=== PATIENT | female | born 1955 | race Hispanic/Latino ===

== ENCOUNTER 2018-06-20 12:21 | Inpatient (IN) | payer OTHER, MEDICARE ==
[2018-06-20 16:44] VITALS: BMI 28.0
[2018-06-20] MEDS ORDERED: ALBUTEROL SULFATE IH PRN (17:04)
[2018-06-20] MEDS ORDERED: DiphenhydrAMINE 50 mg/ml Inj IVP PRN (17:16)
[2018-06-20] MEDS ORDERED: Diphenhydramine 1% CREAM TOP PRN (17:17)
[2018-06-20] MEDS ORDERED: oxyCODONE 10 mg ER Tab (oxyCONTIN) PO SCH (21:00)
[2018-06-21] MEDS ORDERED: Bisacodyl 5mg EC Tab PO ONE (03:27)
[2018-06-21 04:34] LABS: SQUAMOUS EPITHIAL 1 /hpf (0-5); URINE BACTERIA RARE (<OCC); URINE BILIRUBIN NEGATIVE (NEGATIVE); URINE BLOOD MODERATE (NEGATIVE); URINE CLARITY CLOUDY (Clear); URINE COLOR YELLOW (YELLOW); URINE GLUCOSE (UA) NEG (NEGATIVE); URINE LEUKOCYTE ESTERASE NEG Leu/uL (Negative); URINE PROTEIN NEGATIVE (NEGATIVE); URINE UROBILINOGEN 0.2-1.0 mg/dL (0.2-1.0)
--- NOTE | 2018-06-21 07:00 | CP.PCM.PN ---
Subjective - Date & Time of Evaluation Date of Evaluation: 06/21/18 Time of Evaluation: 06:45 - Subjective Subjective: Patient was asleep at the time of examination. She was able to participate in PT, without IV Dilaudid per staff. She was given mostly Toradol during the day and one dose of Oxycontin af night. She did ask for other medications which she had been on before. Once again, she stated that she has an appt with her pain physician at 07/06. Objective - Vital Signs/Intake and Output Vital Signs (last 24 hours): Temp Pulse Resp BP Pulse Ox 99.3 F 103 H 20 101/68 94 L 06/20/18 21:21 06/20/18 21:21 06/20/18 21:21 06/20/18 21:21 06/20/18 21:21 - Medications Medications: Current Medications Acetaminophen (Tylenol 325mg Tab) 650 mg PO Q4 PRN PRN Reason: Pain, Mild (1-3) Albuterol (Ventolin Hfa 90 Mcg/Actuation (8 G)) 2 puff IH Q6 PRN PRN Reason: Shortness of Breath Bacitracin (Bacitracin Oint) 1 applic TOP TID [facility] Calcium Carbonate (Oscal) 500 mg PO DAILY [facility] Cyanocobalamin (Vitamin B12 1000 Mcg Tab) 1,000 mcg PO DAILY [facility] Docusate Sodium (Colace) 100 mg PO DAILY [facility] Folic Acid (Folic Acid) 1 mg PO DAILY [facility] Home Med (Folic Acid [Folic Acid]) 0.4 mg PO DAILY [facility] Ketorolac Tromethamine (Toradol) 30 mg IVP Q6 PRN PRN Reason: Pain, severe (8-10) Last Admin: 06/21/18 04:00 Dose: 30 mg Lactulose (Enulose) 20 gm PO Q12 PRN PRN Reason: Constipation Lorazepam (Ativan) 1 mg PO HS [facility] Last Admin: 06/20/18 23:07 Dose: 1 mg Losartan Potassium (Cozaar) 100 mg PO DAILY [facility] Metoprolol Tartrate (Lopressor) 50 mg PO BID [facility] Ondansetron HCl (Zofran Inj) 4 mg IVP Q6 PRN PRN Reason: Nausea/Vomiting Oxycodone HCl (Oxycontin Extended Release Tab) 30 mg PO Q12 [facility] Stop: 06/23/18 21:01 Last Admin: 06/20/18 20:51 Dose: 30 mg Pregabalin (Lyrica) 50 mg PO TID [facility] Pyridoxine HCl (Vitamin B6) 25 mg PO DAILY [facility] Vitamin D (Vitamin D 400 Intl Units Tab) 800 intlu PO DAILY [facility] Zinc Acetate/Diphenhydramine (Benadryl 1% Zinc Acetate -0.1%) 1 applic TOP Q12 PRN PRN Reason: Itching / Pruritus Zolpidem Tartrate (Ambien) 5 mg PO HS [facility] Last Admin: 06/20/18 23:16 Dose: Not Given - Constitutional Appears: No Acute Distress Assessment and Plan (1) S/P hardware removal Assessment & Plan: 62 yo woman w/ chronic pain, on Suboxone, is s/p L1-S1 fusion. Patient was transferred from 6S to TCU. - d/c Oxycontin, start Oxycodone 30mg q6h PRN - continue Lyrica and Toradol, can titrate Lyrica to 100mg q8h, Toradol needs to be transitioned to PO NSAIDs by Friday - once again, patient needs to be restarted on Suboxone CYNTHIA by her primary pain physician, she has to find a way to have an earlier appt than 07/06, PMD may need to write for Oxycodone 30mg for a few days until she can see her physician Status: Acute
[2018-06-21] MEDS: oxyCODONE 10 mg Immediate Release Tab PO PRN ×2 (08:53→16:28)
[2018-06-21] MEDS: Cholecalciferol 400 Intl Units Tab PO SCH (08:55)
[2018-06-21] MEDS: Bacitracin OINT 15GM TOP SCH ×3 (08:58→16:29)
--- NOTE | 2018-06-21 10:58 | CP.PCM.HP ---
<Pauly Nova - Last Filed: 06/21/18 18:30> History of Present Illness - History of Present Illness History of Present Illness: 62 y/o F with medical hx of HTN, HLD, osteoarthritis, COPD is admitted to TCU for physical therapy post following removal of posterior hardware L4-L5, dorsal fusion L1-S1 w/ anterior fusion L5-S1. Patient is receiving pain management& has been complaining of pain in b/l calves, but denies nausea, vomiting, chest pain, SOB, abdominal pain. PCP: Dr Brown Spinal surgeon: Mathieu Hidalgo Allergies: Clindamycin, latex, tramadol. Medications, as per chart: Losartan 100mg PO daily, Lorazepam 2mg PO HS, Calcium Carbonate 600mg PO daily, Albuterol HFA PRN, oxycodone IR 5mg BID, Ambien 10mg PO HS, Pyridoxine 25mg PO daily, Folic acid 0.4mg PO daily, Vit B12 1,000mcg PO daily, vitamin D3 800units PO daily, Suboxone 2mg/0.5mg PMHx: HTN, HLD, osteoarthritis, COPD. PSHx: 3x , Cervical disectomy and L trigger finger release SHx: Quit smoking 4 years ago & denies eToH or ellicit drug use Present on Admission - Present on Admission Any Indicators Present on Admission: No History of DVT/PE: No History of Uncontrolled Diabetes: No Urinary Catheter: No Decubitus Ulcer Present: No Past Patient History - Past Medical History & Family History Past Medical History?: Yes - Past Social History Smoking Status: Former Smoker - CARDIAC Hx Cardiac Disorders: Yes Hx Hypertension: Yes - PULMONARY Hx Respiratory Disorders: No - NEUROLOGICAL Hx Neurological Disorder: No - HEENT Hx HEENT Problems: No - RENAL Hx Chronic Kidney Disease: No - ENDOCRINE/METABOLIC Hx Endocrine Disorders: No - HEMATOLOGICAL/ONCOLOGICAL Hx Blood Disorders: No Hx AIDS: No Hx Blood Transfusions: No Hx Human Immunodeficiency Virus (HIV): No - INTEGUMENTARY Hx Dermatological Problems: No - MUSCULOSKELETAL/RHEUMATOLOGICAL Hx Musculoskeletal Disorders: Yes Hx Arthritis: Yes Hx Back Pain: Yes (back surgery on L4/L5 in 2007) Hx Falls: Yes - GASTROINTESTINAL Hx Gastrointestinal Disorders: No - GENITOURINARY/GYNECOLOGICAL Hx Genitourinary Disorders: No - PSYCHIATRIC Hx Emotional Abuse: No Hx Physical Abuse: No - SURGICAL HISTORY Hx Surgeries: Yes (back surgery on L4/L5 in 2007) Other/Comment: cervical discectomy. left trigger finger release - ANESTHESIA Hx Anesthesia: Yes Hx Anesthesia Reactions: No Hx Malignant Hyperthermia: No Meds Allergies/Adverse Reactions: Allergies Allergy/AdvReac Type Severity Reaction Status Date / Time clindamycin Allergy DIARRHEA Verified 06/20/18 13:27 latex Allergy REDNESS Verified 06/15/18 15:04 tramadol Allergy NAUSEA Verified 06/18/18 06:54 Physical Exam - Constitutional Appears: Non-toxic, No Acute Distress - Head Exam Head Exam: ATRAUMATIC, NORMAL INSPECTION - Eye Exam Eye Exam: EOMI - ENT Exam ENT Exam: Mucous Membranes Moist - Respiratory Exam Respiratory Exam: Clear to Auscultation Bilateral - Cardiovascular Exam Cardiovascular Exam: RRR, +S1, +S2 - GI/Abdominal Exam GI & Abdominal Exam: absent: Guarding, Rebound, Rigid Additional comments: tenderness over incision site in LL abdomen - Neurological Exam Neurological exam: Alert, Oriented x3 Additional comments: dressing clean dry intact with no discharge over L1-L5; sensation in upper and lower extremity intact b/l Results - Vital Signs Recent Vital Signs: Last Vital Signs Temp 98.9 F 06/21/18 08:10 Pulse 95 H 06/21/18 08:58 Resp 20 06/21/18 08:10 BP 95/56 L 06/21/18 08:58 Pulse Ox 96 06/21/18 08:10 - Labs Result Diagrams: 06/21/18 17:00 06/21/18 17:00 Labs: Laboratory Results - last 24 hr 06/21/18 04:23 Urine Color Yellow Urine Clarity Cloudy Urine pH 6.0 Ur Specific [place] 1.008 Urine Protein Negative Urine Glucose (UA) Neg Urine Ketones Negative Urine Blood Moderate Urine Nitrate Negative Urine Bilirubin Negative Urine Urobilinogen 0.2-1.0 Ur Leukocyte Esterase Neg Urine RBC (Auto) 2 Urine Microscopic WBC 9 H Ur Squamous Epith Cells 1 Urine Bacteria Rare Assessment & Plan - Assessment and Plan (Free Text) Assessment: 62 y/o F with a PMHx of HTN, osteoarthritis, COPD and lumbar disc herniation is admitted for evaluation S/P removal of posterior hardware L4-L5, dorsal fusion L1-S1 w/ anteior fusion L5-S1. 1. Lumbar herniated disk --POD #3 --Afebrile with WBC trending down. --Continue pain management as per anesthesia. --Heart Healthy PO diet --Continue to monitor mental status. 2. HTN --Home meds resumed -Monitor VS. 3. COPD --Home meds resumed 4. DVT Prophylaxis --SCD's for now ( Ortho does not want anticoagulation) <Ru Clarke - Last Filed: 06/21/18 23:13> Results - Vital Signs Recent Vital Signs: Last Vital Signs Temp 99.7 F H 06/21/18 19:51 Pulse 90 06/21/18 19:51 Resp 20 06/21/18 19:51 BP 103/63 06/21/18 19:51 Pulse Ox 99 06/21/18 19:51 - Labs Result Diagrams: 06/21/18 17:00 06/21/18 17:00 Labs: Laboratory Results - last 24 hr 06/21/18 06/21/18 06/21/18 04:23 17:00 17:00 WBC 14.3 H RBC 2.39 L Hgb 7.3 L Hct 22.3 L MCV 93.1 MCH 30.7 MCHC 33.0 RDW 13.5 Plt Count 169 MPV 10.2 Neut % (Auto) 84.4 H Lymph % (Auto) 7.9 L Moca % (Auto) 7.5 Eos % (Auto) 0.1 Baso % (Auto) 0.1 Neut # (Auto) 12.1 H Lymph # (Auto) 1.1 Moca # (Auto) 1.1 H Eos # (Auto) 0.0 Baso # (Auto) 0.0 Neutrophils % (Manual) 85 H Lymphocytes % (Manual) 9 L Monocytes % (Manual) 6 Platelet Estimate Normal Anisocytosis (manual) Slight Sodium 136 Potassium 3.7 Chloride 93 L Carbon Dioxide 26 Anion Gap 21 H BUN 15 Creatinine 0.9 Est GFR ( Amer) > 60 Est GFR (Non-Af Amer) > 60 Random Glucose 130 H Calcium 8.4 Phosphorus 2.7 Magnesium 1.8 Total Bilirubin 1.0 AST 206 H ALT 76 H Alkaline Phosphatase 111 Total Protein 6.7 Albumin 3.4 L Globulin 3.3 Albumin/Globulin Ratio 1.0 Urine Color Yellow Urine Clarity Cloudy Urine pH 6.0 Ur Specific [place] 1.008 Urine Protein Negative Urine Glucose (UA) Neg Urine Ketones Negative Urine Blood Moderate Urine Nitrate Negative Urine Bilirubin Negative Urine Urobilinogen 0.2-1.0 Ur Leukocyte Esterase Neg Urine RBC (Auto) 2 Urine Microscopic WBC 9 H Ur Squamous Epith Cells 1 Urine Bacteria Rare Attending/Attestation - Attestation I have personally seen and examined this patient.: Yes I have fully participated in the care of the patient.: Yes I have reviewed all pertinent clinical information: Yes Notes (Text): 06/21/18 23:13 Patient seen and examined with resident. Case discussed and agreed with asses sment and plan of management.
[2018-06-21] MEDS: Bisacodyl 5mg EC Tab PO SCH (11:52)
[2018-06-21 17:31] LABS: BASO % 0.1 % (0.0-2.0); EOS % 0.1 % (0.0-4.0); HEMOGLOBIN 7.3 g/dL (12.0-16.0); LYMPH # 1.1 K/uL (1.0-4.3); LYMPH % 7.9 % (20.0-40.0); MEAN CELL VOLUME 93.1 fl (81.0-99.0); MEAN CORPUSCULAR HEMOGLOBIN 30.7 pg (27.0-31.0); MEAN PLATELET VOLUME 10.2 fl (7.2-11.7); MONO # 1.1 K/uL (0.0-0.8); MONO % 7.5 % (0.0-10.0); NEUT # 12.1 K/uL (1.8-7.0); NEUT % 84.4 % (50.0-75.0); PLATELET COUNT 169 K/uL (130-400); RBC 2.39 Mil/uL (3.80-5.20); RED CELL DISTRIBUTION WIDTH 13.5 % (11.5-14.5); WHITE BLOOD COUNT 14.3 K/uL (4.8-10.8)
[2018-06-21 17:45] LABS: ALBUMIN 3.4 g/dL (3.5-5.0); ALT/SGPT 76 U/L (9-52); AST/SGOT 206 U/L (14-36); BLOOD UREA NITROGEN 15 mg/dl (7-17); CALCIUM 8.4 mg/dL (8.4-10.2); GFR NON-AFRICAN AMERICAN > 60
[2018-06-21 20:14] LABS: LYMPHOCYTE 9 % (20-50); MONOCYTE 6 % (0-10); NEUTROPHIL 85 % (42-75); PLATELET ESTIMATE NORMAL (NORMAL); TOTAL CELLS COUNTED 100
[2018-06-21 20:15] LABS: ANISOCYTOSIS SLIGHT
[2018-06-22] MEDS: oxyCODONE 10 mg Immediate Release Tab PO PRN (03:52)
[2018-06-22] MEDS: Cholecalciferol 400 Intl Units Tab PO SCH (09:04)
[2018-06-22] MEDS: Bisacodyl 5mg EC Tab PO SCH (09:08)
[2018-06-22] MEDS: Bacitracin OINT 15GM TOP SCH ×3 (09:10→17:36)
[2018-06-22] MEDS ORDERED: oxyCODONE 5 mg Immediate Release Tab PO PRN (10:30)
[2018-06-22] MEDS: oxyCODONE 5 mg Immediate Release Tab PO PRN (21:10)
[2018-06-22 21:34] LABS: SQUAMOUS EPITHIAL 2 /hpf (0-5); URINE BILIRUBIN NEGATIVE (NEGATIVE); URINE BLOOD SMALL (NEGATIVE); URINE CLARITY CLEAR (Clear); URINE COLOR YELLOW (YELLOW); URINE GLUCOSE (UA) NEG (NEGATIVE); URINE LEUKOCYTE ESTERASE NEG Leu/uL (Negative); URINE PROTEIN NEGATIVE (NEGATIVE); URINE UROBILINOGEN 0.2-1.0 mg/dL (0.2-1.0)
[2018-06-23] MEDS: oxyCODONE 5 mg Immediate Release Tab PO PRN ×3 (04:36→20:22)
[2018-06-23] MEDS: Bacitracin OINT 15GM TOP SCH ×4 (08:00→16:43)
[2018-06-23] MEDS: Cholecalciferol 400 Intl Units Tab PO SCH (08:01)
[2018-06-23] MEDS: Bisacodyl 5mg EC Tab PO SCH (08:01)
--- NOTE | 2018-06-23 10:17 | CP.PCM.PN ---
Subjective - Date & Time of Evaluation Date of Evaluation: 06/23/18 Time of Evaluation: 10:00 - Subjective Subjective: Patient was seen and examined . Complains of muscle pain and cramps to lower extremities.She is constipated. back pain is a little better . Hemodynamically stable, afebrile Denies any dizziness, palpitations, SOB Participating with PT Objective - Vital Signs/Intake and Output Vital Signs (last 24 hours): Temp Pulse Resp BP Pulse Ox 98.6 F 68 20 117/57 L 96 06/23/18 08:08 06/23/18 10:03 06/23/18 08:08 06/23/18 08:08 06/23/18 08:08 - Medications Medications: Current Medications Acetaminophen (Tylenol 325mg Tab) 650 mg PO Q4 PRN PRN Reason: Pain, Mild (1-3) Acetaminophen (Tylenol 325mg Tab) 650 mg PO Q6 PRN PRN Reason: Fever >100.4 F Last Admin: 06/22/18 21:10 Dose: 650 mg Albuterol (Ventolin Hfa 90 Mcg/Actuation (8 G)) 2 puff IH Q6 PRN PRN Reason: Shortness of Breath Bacitracin (Bacitracin Oint) 1 applic TOP TID [facility] Last Admin: 06/23/18 08:00 Dose: 1 applic Bisacodyl (Dulcolax) 10 mg PO DAILY [facility] Last Admin: 06/23/18 08:01 Dose: 10 mg Calcium Carbonate (Oscal) 500 mg PO DAILY [facility] Last Admin: 06/23/18 08:02 Dose: 500 mg Cyanocobalamin (Vitamin B12 1000 Mcg Tab) 1,000 mcg PO DAILY [facility] Last Admin: 06/23/18 08:02 Dose: 1,000 mcg Docusate Sodium (Colace) 100 mg PO DAILY [facility] Last Admin: 06/23/18 08:01 Dose: 100 mg Folic Acid (Folic Acid) 1 mg PO DAILY [facility] Last Admin: 06/22/18 09:00 Dose: Not Given Ketorolac Tromethamine (Toradol) 30 mg IVP Q6 PRN PRN Reason: Pain, severe (8-10) Last Admin: 06/21/18 13:32 Dose: 30 mg Lactulose (Enulose) 20 gm PO Q12 PRN PRN Reason: Constipation Lorazepam (Ativan) 1 mg PO HS [facility] Last Admin: 06/22/18 21:47 Dose: 1 mg Losartan Potassium (Cozaar) 100 mg PO DAILY [facility] Last Admin: 06/23/18 08:02 Dose: 100 mg Metoprolol Tartrate (Lopressor) 50 mg PO BID [facility] Last Admin: 06/23/18 08:01 Dose: 50 mg Ondansetron HCl (Zofran Inj) 4 mg IVP Q6 PRN PRN Reason: Nausea/Vomiting Oxycodone HCl (Oxycodone Immediate Release Tab) 15 mg PO Q6 PRN PRN Reason: Pain, severe (8-10) Last Admin: 06/23/18 04:36 Dose: 15 mg Pregabalin (Lyrica) 50 mg PO TID [facility] Last Admin: 06/23/18 08:00 Dose: 50 mg Pyridoxine HCl (Vitamin B6) 25 mg PO DAILY [facility] Last Admin: 06/23/18 08:02 Dose: 25 mg Vitamin D (Vitamin D 400 Intl Units Tab) 800 intlu PO DAILY [facility] Last Admin: 06/23/18 08:01 Dose: 800 intlu Zinc Acetate/Diphenhydramine (Benadryl 1% Zinc Acetate -0.1%) 1 applic TOP Q12 PRN PRN Reason: Itching / Pruritus Zolpidem Tartrate (Ambien) 5 mg PO [facility] Last Admin: 06/22/18 22:22 Dose: Not Given - Labs Labs: 06/21/18 17:00 06/21/18 17:00 - Constitutional Appears: Non-toxic, No Acute Distress - Head Exam Head Exam: ATRAUMATIC, NORMAL INSPECTION, NORMOCEPHALIC - Eye Exam Eye Exam: EOMI, Normal appearance, PERRL Pupil Exam: NORMAL ACCOMODATION - ENT Exam ENT Exam: Mucous Membranes Moist, Normal Exam - Neck Exam Neck Exam: Full ROM, Normal Inspection - Respiratory Exam Respiratory Exam: Clear to Ausculation Bilateral, NORMAL BREATHING PATTERN. absent: Rales, Rhonchi, Wheezes - Cardiovascular Exam Cardiovascular Exam: REGULAR RHYTHM, RRR, +S1, +S2. absent: JVD - GI/Abdominal Exam GI & Abdominal Exam: Soft, Normal Bowel Sounds. absent: Distended, Guarding, Tenderness, Rebound Additional comments: left mid abdomen surgical incision with dressing in place - Rectal Exam Rectal Exam: Deferred - Extremities Exam Extremities Exam: Full ROM, Normal Capillary Refill, Normal Inspection. absent: Pedal Edema - Back Exam Back Exam: NORMAL INSPECTION - Neurological Exam Neurological Exam: Alert, Awake, CN II-XII Intact - Psychiatric Exam Psychiatric exam: Normal Affect, Normal Mood - Skin Skin Exam: Dry, Pallor, Warm Assessment and Plan - Assessment and Plan (Free Text) Assessment: 62 y/o F with a PMHx of HTN, osteoarthritis, COPD and lumbar disc herniation was admitted to TCU S/P removal of posterior hardware L4-L5 and dorsal fusion L1- S1 w/ anterior fusion L5-S1. Participating with PT and doing better . Still complaining of back pain and muscle cramps to lower extremities Her Hgb dropped to 7.4 from 12 pre procedure . 1.s/p S/P removal of posterior hardware L4-L5 and dorsal fusion L1-S1 w/ ante rior fusion L5-S1. POD #3 Pain is better controlled but still present pain management on consult following . Increased Oxycodone to 20 mg po Q6 PRN. Continue Lyrica and Flexeril Will need to follow uip with her pain management doctor for her suboxan as outpatient Continue physical therapy No anticoagulation due to high risk for bleeding from anterior approach 2. Acute blood loss anemia post op Hgb dropped from 12 to 7.4 will type and cross match and transfuse 2 unit PRBC Start Ferrous sulfate PO and colace 3. HTN controlled Continue metoprolol and losartan 4. COPD controlled Duonebs PRN 5.Constipation continue colace will give Enema today 6. DVT Prophylaxis SCD
[2018-06-23 10:30] LABS: BASO % 0.4 % (0.0-2.0); EOS # 0.1 K/uL (0.0-0.7); EOS % 1.4 % (0.0-4.0); HEMOGLOBIN 7.4 g/dL (12.0-16.0); LYMPH # 1.4 K/uL (1.0-4.3); MEAN CELL VOLUME 91.9 fl (81.0-99.0); MEAN CORPUSCULAR HEMOGLOBIN 30.8 pg (27.0-31.0); MEAN CORPUSCULAR HGB CONC 33.6 g/dL (33.0-37.0); MEAN PLATELET VOLUME 9.4 fl (7.2-11.7); MONO # 0.9 K/uL (0.0-0.8); MONO % 12.6 % (0.0-10.0); NEUT # 4.9 K/uL (1.8-7.0); NEUT % 66.6 % (50.0-75.0); RBC 2.39 Mil/uL (3.80-5.20); RED CELL DISTRIBUTION WIDTH 13.3 % (11.5-14.5); WHITE BLOOD COUNT 7.4 K/uL (4.8-10.8)
[2018-06-23] MEDS ORDERED: oxyCODONE 10 mg Immediate Release Tab PO PRN (10:32)
--- NOTE | 2018-06-23 10:36 | CP.PCM.PN ---
Subjective - Date & Time of Evaluation Date of Evaluation: 06/23/18 Time of Evaluation: 10:30 - Subjective Subjective: The Oxycodone dosage was changed from 30mg to 15mg due to sedation two days ago, but patient then complained of pain in the back and legs, as well cramping in the legs on the lower dosage. She now states that she can see her pain physic donny on 07/03 but not sooner. Objective - Vital Signs/Intake and Output Vital Signs (last 24 hours): Temp Pulse Resp BP Pulse Ox 98.6 F 68 20 117/57 L 96 06/23/18 08:08 06/23/18 10:03 06/23/18 08:08 06/23/18 08:08 06/23/18 08:08 - Medications Medications: Current Medications Acetaminophen (Tylenol 325mg Tab) 650 mg PO Q4 PRN PRN Reason: Pain, Mild (1-3) Acetaminophen (Tylenol 325mg Tab) 650 mg PO Q6 PRN PRN Reason: Fever >100.4 F Last Admin: 06/22/18 21:10 Dose: 650 mg Albuterol (Ventolin Hfa 90 Mcg/Actuation (8 G)) 2 puff IH Q6 PRN PRN Reason: Shortness of Breath Bacitracin (Bacitracin Oint) 1 applic TOP TID [facility] Last Admin: 06/23/18 08:00 Dose: 1 applic Bisacodyl (Dulcolax) 10 mg PO DAILY [facility] Last Admin: 06/23/18 08:01 Dose: 10 mg Calcium Carbonate (Oscal) 500 mg PO DAILY [facility] Last Admin: 06/23/18 08:02 Dose: 500 mg Cyanocobalamin (Vitamin B12 1000 Mcg Tab) 1,000 mcg PO DAILY [facility] Last Admin: 06/23/18 08:02 Dose: 1,000 mcg Cyclobenzaprine HCl (Flexeril) 10 mg PO Q8 PRN PRN Reason: Muscle spasm Docusate Sodium (Colace) 100 mg PO DAILY [facility] Last Admin: 06/23/18 08:01 Dose: 100 mg Folic Acid (Folic Acid) 1 mg PO DAILY [facility] Last Admin: 06/22/18 09:00 Dose: Not Given Ketorolac Tromethamine (Toradol) 30 mg IVP Q6 PRN PRN Reason: Pain, severe (8-10) Last Admin: 06/21/18 13:32 Dose: 30 mg Lactulose (Enulose) 20 gm PO Q12 PRN PRN Reason: Constipation Lorazepam (Ativan) 1 mg PO HS [facility] Last Admin: 06/22/18 21:47 Dose: 1 mg Losartan Potassium (Cozaar) 100 mg PO DAILY [facility] Last Admin: 06/23/18 08:02 Dose: 100 mg Metoprolol Tartrate (Lopressor) 50 mg PO BID [facility] Last Admin: 06/23/18 08:01 Dose: 50 mg Ondansetron HCl (Zofran Inj) 4 mg IVP Q6 PRN PRN Reason: Nausea/Vomiting Oxycodone HCl (Oxycodone Immediate Release Tab) 20 mg PO Q6 PRN PRN Reason: Pain, severe (8-10) Pregabalin (Lyrica) 50 mg PO TID [facility] Last Admin: 06/23/18 08:00 Dose: 50 mg Pyridoxine HCl (Vitamin B6) 25 mg PO DAILY [facility] Last Admin: 06/23/18 08:02 Dose: 25 mg Vitamin D (Vitamin D 400 Intl Units Tab) 800 intlu PO DAILY [facility] Last Admin: 06/23/18 08:01 Dose: 800 intlu Zinc Acetate/Diphenhydramine (Benadryl 1% Zinc Acetate -0.1%) 1 applic TOP Q12 PRN PRN Reason: Itching / Pruritus Zolpidem Tartrate (Ambien) 5 mg PO HS [facility] Last Admin: 06/22/18 22:22 Dose: Not Given - Labs Labs: 06/21/18 17:00 06/21/18 17:00 - Constitutional Appears: No Acute Distress Assessment and Plan (1) S/P hardware removal Assessment & Plan: 62 yo woman w/ chronic pain, s/p lumbar fusion. - increase Oxycodone to 20mg q6h PRN - start Flexeril - continue Lyrica, consider increasing to 100mg q8h - patient needs to see pain physician as outpatient CYNTHIA for suboxone. Status: Acute
[2018-06-23 10:49] LABS: % IRON SATURATION 7 % (20-55); IRON 21 ug/dL (37-170); TOTAL IRON BINDING CAPACITY 303 ug/dL (250-450)
[2018-06-23 12:13] LABS: ALBUMIN 3.4 g/dL (3.5-5.0); ALT/SGPT 103 U/L (9-52); AST/SGOT 175 U/L (14-36); BLOOD UREA NITROGEN 11 mg/dl (7-17); CALCIUM 8.6 mg/dL (8.4-10.2); GFR NON-AFRICAN AMERICAN > 60
--- NOTE | 2018-06-23 14:12 | RAD ---
Date of service: 06/23/2018 HISTORY: r/o pneumonia COMPARISON: Portable chest 06/20/2018. FINDINGS: LUNGS: No interval active pulmonary disease, including left base. PLEURA: No significant pleural effusion identified, no pneumothorax apparent. CARDIOVASCULAR: No aortic atherosclerotic calcification present. Normal cardiac size. No pulmonary vascular congestion. OSSEOUS STRUCTURES: Prior cervical and lumbar spinal fusion hardware reiterated. VISUALIZED UPPER ABDOMEN: Normal. OTHER FINDINGS: None. IMPRESSION: No interval acute cardiopulmonary disease appreciated.
[2018-06-23 20:51] LABS: FOLATE 10.3 ng/mL
[2018-06-24] MEDS: oxyCODONE 5 mg Immediate Release Tab PO PRN ×4 (06:15→23:17)
[2018-06-24] MEDS: Bacitracin OINT 15GM TOP SCH ×3 (08:10→16:41)
[2018-06-24] MEDS: Cholecalciferol 400 Intl Units Tab PO SCH (08:11)
[2018-06-24] MEDS: Bisacodyl 5mg EC Tab PO SCH (08:12)
[2018-06-24 15:05] LABS: HEMOGLOBIN 9.8 g/dL (12.0-16.0); MEAN CELL VOLUME 90.2 fl (81.0-99.0); MEAN CORPUSCULAR HEMOGLOBIN 30.5 pg (27.0-31.0); MEAN CORPUSCULAR HGB CONC 33.8 g/dL (33.0-37.0); RBC 3.23 Mil/uL (3.80-5.20); RED CELL DISTRIBUTION WIDTH 13.7 % (11.5-14.5); WHITE BLOOD COUNT 9.3 K/uL (4.8-10.8)
[2018-06-24 15:33] VITALS: RESP 20
[2018-06-25] MEDS: Bacitracin OINT 15GM TOP SCH ×3 (08:52→17:44)
[2018-06-25] MEDS: Bisacodyl 5mg EC Tab PO SCH (08:53)
[2018-06-25] MEDS: Cholecalciferol 400 Intl Units Tab PO SCH (08:55)
[2018-06-25] MEDS: oxyCODONE 5 mg Immediate Release Tab PO PRN ×3 (09:00→21:36)
[2018-06-25] MEDS: Albuterol HFA 90 mcg/actuation (8 g) IH PRN (09:03)
[2018-06-25 12:04] LABS: PROTHROMBIN TIME 11.4 Seconds (9.8-13.1)
[2018-06-25 12:40] LABS: ALBUMIN 3.9 g/dL (3.5-5.0); ALT/SGPT 85 U/L (9-52); AST/SGOT 104 U/L (14-36); BILIRUBIN,DIRECT 0.3 mg/ml (0.0-0.4); BLOOD UREA NITROGEN 10 mg/dl (7-17); CALCIUM 9.1 mg/dL (8.4-10.2); GFR NON-AFRICAN AMERICAN > 60
[2018-06-25 16:36] LABS: HEPATITIS B SURFACE AG Negative (NEGATIVE)
[2018-06-25 16:42] LABS: HEPATITIS A IGM NEGATIVE (NEGATIVE); HEPATITIS B CORE AB NEGATIVE (NEGATIVE)
[2018-06-25 16:53] LABS: HEPATITIS C ANTIBODY NEGATIVE (NEGATIVE)
--- NOTE | 2018-06-25 18:18 | CP.PCM.PN ---
Subjective - Date & Time of Evaluation Date of Evaluation: 06/25/18 Time of Evaluation: 11:20 - Subjective Subjective: Patient seen and examined. Complained of cramping on both legs since post spinal fusion. Low back pain was much relieved. Objective - Vital Signs/Intake and Output Vital Signs (last 24 hours): Temp Pulse Resp BP Pulse Ox 99.2 F 80 20 128/73 94 L 06/25/18 16:14 06/25/18 17:42 06/25/18 16:14 06/25/18 17:42 06/25/18 16:14 - Medications Medications: Current Medications Acetaminophen (Tylenol 325mg Tab) 650 mg PO Q4 PRN PRN Reason: Pain, Mild (1-3) Last Admin: 06/25/18 13:41 Dose: 650 mg Acetaminophen (Tylenol 325mg Tab) 650 mg PO Q6 PRN PRN Reason: Fever >100.4 F Last Admin: 06/22/18 21:10 Dose: 650 mg Albuterol (Ventolin Hfa 90 Mcg/Actuation (8 G)) 2 puff IH Q6 PRN PRN Reason: Shortness of Breath Last Admin: 06/25/18 09:03 Dose: 2 puff Bacitracin (Bacitracin Oint) 1 applic TOP TID [facility] Last Admin: 06/25/18 17:44 Dose: 1 applic Bisacodyl (Dulcolax) 10 mg PO DAILY [facility] Last Admin: 06/25/18 08:53 Dose: 10 mg Calcium Carbonate (Oscal) 500 mg PO DAILY [facility] Last Admin: 06/25/18 08:54 Dose: 500 mg Cyclobenzaprine HCl (Flexeril) 10 mg PO Q8 PRN PRN Reason: Muscle spasm Last Admin: 06/25/18 10:19 Dose: 10 mg Docusate Sodium (Colace) 100 mg PO DAILY [facility] Last Admin: 06/25/18 08:52 Dose: 100 mg Ferrous Sulfate (Feosol) 325 mg PO BID [facility] Last Admin: 06/25/18 17:43 Dose: 325 mg Folic Acid (Folic Acid) 1 mg PO DAILY [facility] Last Admin: 06/25/18 08:54 Dose: 1 mg Lactulose (Enulose) 20 gm PO Q12 PRN PRN Reason: Constipation Lorazepam (Ativan) 1 mg PO HS [facility] Last Admin: 06/24/18 21:00 Dose: 1 mg Losartan Potassium (Cozaar) 100 mg PO DAILY [facility] Last Admin: 06/25/18 08:53 Dose: 100 mg Metoprolol Tartrate (Lopressor) 50 mg PO BID [facility] Last Admin: 06/25/18 17:42 Dose: 50 mg Ondansetron HCl (Zofran Inj) 4 mg IVP Q6 PRN PRN Reason: Nausea/Vomiting Oxycodone HCl (Oxycodone Immediate Release Tab) 20 mg PO Q6 PRN PRN Reason: Pain, severe (8-10) Last Admin: 06/25/18 15:48 Dose: 20 mg Pregabalin (Lyrica) 100 mg PO Q8H [facility] Last Admin: 06/25/18 13:39 Dose: 100 mg Pyridoxine HCl (Vitamin B6) 25 mg PO DAILY [facility] Last Admin: 06/25/18 08:54 Dose: 25 mg Vitamin D (Vitamin D 400 Intl Units Tab) 800 intlu PO DAILY [facility] Last Admin: 06/25/18 08:55 Dose: 800 intlu Zinc Acetate/Diphenhydramine (Benadryl 1% Zinc Acetate -0.1%) 1 applic TOP Q12 PRN PRN Reason: Itching / Pruritus Zolpidem Tartrate (Ambien) 5 mg PO HS [facility] Last Admin: 06/24/18 21:50 Dose: Not Given - Labs Labs: 06/24/18 15:01 06/25/18 11:50 PT 11.4 Seconds (9.8-13.1) 06/25/18 11:50 INR 1.0 06/25/18 11:50 - Constitutional Appears: No Acute Distress - Head Exam Head Exam: ATRAUMATIC - Eye Exam Eye Exam: absent: Scleral icterus - ENT Exam ENT Exam: Mucous Membranes Moist - Neck Exam Neck Exam: absent: Meningismus - Respiratory Exam Respiratory Exam: absent: Rales, Rhonchi, Wheezes, Respiratory Distress - Cardiovascular Exam Cardiovascular Exam: REGULAR RHYTHM, +S1, +S2 - GI/Abdominal Exam GI & Abdominal Exam: Soft. absent: Tenderness - Rectal Exam Rectal Exam: Deferred - Neurological Exam Neurological Exam: Alert, Oriented x3 - Psychiatric Exam Psychiatric exam: Normal Affect - Skin Skin Exam: Dry, Intact Assessment and Plan - Assessment and Plan (Free Text) Assessment: 62 yo female with history of HTN, OA, COPD and lumbar herniated disc had posterior and anterior lumbar spinal fusion on 06/19/2018. She was transferred to TCU on 06/21/2018 for continuation of therapy and pain management. 1. Post dorsal and anterior lumbar spinal fusion/removal of hardware POD # 6 back pain better tolerated but now complaining of cramping, numbing pain on both legs continue PT 2. Acute blood loss anemia post op Hgb: 9.8 continue FeSO4 3. HTN BP controlled Continue Metoprolol and Losartan 4. COPD asymptomatic Ventolin inhaler 2 puffs q 4hrs prn for SOB/wheezing 5. Elevated LFTs hepatitis panel negative probably drug related LFTs slowly trending down continue monitoring 6. DVT Prophylaxis SCD
[2018-06-26] MEDS: oxyCODONE 5 mg Immediate Release Tab PO PRN ×3 (01:58→16:55)
[2018-06-26] MEDS ORDERED: oxyCODONE 10 mg Immediate Release Tab PO PRN (08:23)
--- NOTE | 2018-06-26 08:27 | CP.PCM.PN ---
Subjective - Date & Time of Evaluation Date of Evaluation: 06/26/18 Time of Evaluation: 08:20 - Subjective Subjective: Per patient, the current combination of Oxycodone 20mg, Lyrica 100mg, Flexeril 10mg isn't really helping with the pain. The main complaint now is the left leg pain, weakness and paresthesia. This developed over the past couple of days. The surgical pain has diminished. Per staff, patient can be intermittently somnolent and is usually able to participate fully in physical therapy, so pain management is likely adequate for the most part. Objective - Vital Signs/Intake and Output Vital Signs (last 24 hours): Temp Pulse Resp BP Pulse Ox 98.4 F 88 20 109/63 96 06/26/18 08:11 06/26/18 08:11 06/26/18 08:11 06/26/18 08:11 06/26/18 08:11 - Medications Medications: Current Medications Acetaminophen (Tylenol 325mg Tab) 650 mg PO Q4 PRN PRN Reason: Pain, Mild (1-3) Last Admin: 06/25/18 13:41 Dose: 650 mg Acetaminophen (Tylenol 325mg Tab) 650 mg PO Q6 PRN PRN Reason: Fever >100.4 F Last Admin: 06/22/18 21:10 Dose: 650 mg Albuterol (Ventolin Hfa 90 Mcg/Actuation (8 G)) 2 puff IH Q6 PRN PRN Reason: Shortness of Breath Last Admin: 06/25/18 09:03 Dose: 2 puff Bacitracin (Bacitracin Oint) 1 applic TOP TID [facility] Last Admin: 06/25/18 17:44 Dose: 1 applic Bisacodyl (Dulcolax) 10 mg PO DAILY [facility] Last Admin: 06/25/18 08:53 Dose: 10 mg Calcium Carbonate (Oscal) 500 mg PO DAILY [facility] Last Admin: 06/25/18 08:54 Dose: 500 mg Cyclobenzaprine HCl (Flexeril) 10 mg PO Q8 PRN PRN Reason: Muscle spasm Last Admin: 06/25/18 18:20 Dose: 10 mg Docusate Sodium (Colace) 100 mg PO DAILY [facility] Last Admin: 06/25/18 08:52 Dose: 100 mg Ferrous Sulfate (Feosol) 325 mg PO BID [facility] Last Admin: 06/25/18 17:43 Dose: 325 mg Folic Acid (Folic Acid) 1 mg PO DAILY [facility] Last Admin: 06/25/18 08:54 Dose: 1 mg Ibuprofen (Motrin Tab) 600 mg PO Q6 PRN PRN Reason: Pain, moderate (4-7) Last Admin: 06/25/18 20:20 Dose: 600 mg Lactulose (Enulose) 20 gm PO Q12 PRN PRN Reason: Constipation Lorazepam (Ativan) 1 mg PO [facility] Last Admin: 06/25/18 21:43 Dose: 1 mg Losartan Potassium (Cozaar) 100 mg PO DAILY [facility] Last Admin: 06/25/18 08:53 Dose: 100 mg Metoprolol Tartrate (Lopressor) 50 mg PO BID [facility] Last Admin: 06/25/18 17:42 Dose: 50 mg Ondansetron HCl (Zofran Inj) 4 mg IVP Q6 PRN PRN Reason: Nausea/Vomiting Pregabalin (Lyrica) 100 mg PO Q8H [facility] Last Admin: 06/26/18 06:38 Dose: Not Given Vitamin D (Vitamin D 400 Intl Units Tab) 800 intlu PO DAILY [facility] Last Admin: 06/25/18 08:55 Dose: 800 intlu Zinc Acetate/Diphenhydramine (Benadryl 1% Zinc Acetate -0.1%) 1 applic TOP Q12 PRN PRN Reason: Itching / Pruritus Zolpidem Tartrate (Ambien) 5 mg PO [facility] Last Admin: 06/25/18 21:39 Dose: Not Given - Labs Labs: 06/24/18 15:01 06/25/18 11:50 PT 11.4 Seconds (9.8-13.1) 06/25/18 11:50 INR 1.0 06/25/18 11:50 - Constitutional Appears: No Acute Distress - Neurological Exam Neuro motor strength exam: Left Lower Extremity: 4, Right Lower Extremity: 5 Assessment and Plan (1) S/P hardware removal Assessment & Plan: 62 yo w/ chronic pain on Suboxone, s/p L1-S1 instrumentation, has recent onset leg weakness. - increase Oxycodone to 30mg, q6h PRN, if still insufficient, would consider switching to Dilaudid 4-6mg PO - continue LYrica and Flexeril - contact surgery regarding left leg weakness, consider re-imaging - PT - patient to see own pain physician upon discharge for Suboxone Status: Acute
[2018-06-26] MEDS: Bacitracin OINT 15GM TOP SCH ×3 (08:46→16:55)
[2018-06-26] MEDS: Bisacodyl 5mg EC Tab PO SCH (08:46)
[2018-06-26] MEDS: Cholecalciferol 400 Intl Units Tab PO SCH (08:47)
--- NOTE | 2018-06-26 12:06 | RAD ---
Date of service: 06/26/2018 PROCEDURE: Left Knee Radiographs. HISTORY: Pain. COMPARISON: None. FINDINGS: BONES: Normal. No fracture. JOINTS: Normal. No osteoarthritis. JOINT EFFUSION: None. OTHER FINDINGS: None. IMPRESSION: Normal radiographs of the left knee.
--- NOTE | 2018-06-26 16:58 | CP.PCM.CON ---
History of Present Illness - History of Present Illness History of Present Illness: Dr Dalton PMR consultation on Heather Caro, born 1955 who has been admitted to the [facility] TCU for CARMINE following removal of L4/5 hardware and L1-S1 dorsal and L5/S1 anterior fusion. Post op now she is doing nicely and other than cons tipation is without significant complaints. She has pain but is moving around the bed and moving her LEs without any significant LBP at this point. Denies significant radiating pain. PT/OT is helpful. Minimal drainage from the most inferior of aspects of the incision. Review of Systems - Constitutional Constitutional: absent: Chills - EENT Eyes: absent: Blurred Vision Ears: absent: Ear Discharge, Ear Pain Nose/Mouth/Throat: absent: Nasal Congestion, Nasal Discharge - Cardiovascular Cardiovascular: absent: Chest Pain - Respiratory Respiratory: absent: Hemoptysis, Dyspnea on Exertion - Gastrointestinal Gastrointestinal: Constipation - Neurological Neurological: absent: Abnormal Movements - Psychiatric Psychiatric: absent: Anxiety Past Patient History - Past Medical History & Family History Past Medical History?: Yes - Past Social History Smoking Status: Former Smoker Drugs: Denies - CARDIAC Hx Cardiac Disorders: Yes Hx Hypertension: Yes - PULMONARY Hx Respiratory Disorders: No - NEUROLOGICAL Hx Neurological Disorder: No - HEENT Hx HEENT Problems: No - RENAL Hx Chronic Kidney Disease: No - ENDOCRINE/METABOLIC Hx Endocrine Disorders: No - HEMATOLOGICAL/ONCOLOGICAL Hx Blood Disorders: No Hx AIDS: No Hx Blood Transfusions: No Hx Human Immunodeficiency Virus (HIV): No - INTEGUMENTARY Hx Dermatological Problems: No - MUSCULOSKELETAL/RHEUMATOLOGICAL Hx Arthritis: Yes - GASTROINTESTINAL Hx Gastrointestinal Disorders: No - GENITOURINARY/GYNECOLOGICAL Hx Genitourinary Disorders: No - PSYCHIATRIC Hx Emotional Abuse: No Hx Physical Abuse: No - SURGICAL HISTORY Hx Surgeries: Yes (back surgery on L4/L5 in 2008) Other/Comment: cervical discectomy. left trigger finger release - ANESTHESIA Hx Anesthesia: Yes Hx Anesthesia Reactions: No Hx Malignant Hyperthermia: No Meds Allergies/Adverse Reactions: Allergies Allergy/AdvReac Type Severity Reaction Status Date / Time clindamycin Allergy DIARRHEA Verified 06/23/18 08:23 latex Allergy REDNESS Verified 06/23/18 08:23 tramadol Allergy NAUSEA Verified 06/23/18 08:23 - Medications Medications: Current Medications Acetaminophen (Tylenol 325mg Tab) 650 mg PO Q4 PRN PRN Reason: Pain, Mild (1-3) Last Admin: 06/25/18 13:41 Dose: 650 mg Acetaminophen (Tylenol 325mg Tab) 650 mg PO Q6 PRN PRN Reason: Fever >100.4 F Last Admin: 06/22/18 21:10 Dose: 650 mg Albuterol (Ventolin Hfa 90 Mcg/Actuation (8 G)) 2 puff IH Q6 PRN PRN Reason: Shortness of Breath Last Admin: 06/25/18 09:03 Dose: 2 puff Bacitracin (Bacitracin Oint) 1 applic TOP TID [facility] Last Admin: 06/26/18 12:35 Dose: Not Given Bisacodyl (Dulcolax) 10 mg PO DAILY [facility] Last Admin: 06/26/18 08:46 Dose: 10 mg Calcium Carbonate (Oscal) 500 mg PO DAILY [facility] Last Admin: 06/26/18 08:47 Dose: 500 mg Cyclobenzaprine HCl (Flexeril) 10 mg PO Q8 PRN PRN Reason: Muscle spasm Last Admin: 06/25/18 18:20 Dose: 10 mg Docusate Sodium (Colace) 100 mg PO DAILY [facility] Last Admin: 06/26/18 08:46 Dose: 100 mg Ferrous Sulfate (Feosol) 325 mg PO BID [facility] Last Admin: 06/26/18 08:47 Dose: 325 mg Folic Acid (Folic Acid) 1 mg PO DAILY [facility] Last Admin: 06/26/18 08:47 Dose: 1 mg Ibuprofen (Motrin Tab) 600 mg PO Q6 PRN PRN Reason: Pain, moderate (4-7) Last Admin: 06/26/18 14:26 Dose: 600 mg Lactulose (Enulose) 20 gm PO Q12 PRN PRN Reason: Constipation Lorazepam (Ativan) 1 mg PO HS [facility] Last Admin: 06/25/18 21:43 Dose: 1 mg Losartan Potassium (Cozaar) 100 mg PO DAILY [facility] Last Admin: 06/26/18 08:47 Dose: 100 mg Metoprolol Tartrate (Lopressor) 50 mg PO BID [facility] Last Admin: 06/26/18 08:48 Dose: 50 mg Ondansetron HCl (Zofran Inj) 4 mg IVP Q6 PRN PRN Reason: Nausea/Vomiting Oxycodone HCl (Oxycodone Immediate Release Tab) 30 mg PO Q6 PRN PRN Reason: Pain, severe (8-10) Last Admin: 06/26/18 09:45 Dose: 30 mg Pregabalin (Lyrica) 100 mg PO Q8H [facility] Last Admin: 06/26/18 14:24 Dose: 100 mg Vitamin D (Vitamin D 400 Intl Units Tab) 800 intlu PO DAILY [facility] Last Admin: 06/26/18 08:47 Dose: 800 intlu Zinc Acetate/Diphenhydramine (Benadryl 1% Zinc Acetate -0.1%) 1 applic TOP Q12 PRN PRN Reason: Itching / Pruritus Zolpidem Tartrate (Ambien) 5 mg PO HS [facility] Last Admin: 06/25/18 21:39 Dose: Not Given Physical Exam - Constitutional Appears: Non-toxic - Head Exam Head Exam: ATRAUMATIC, NORMAL INSPECTION, NORMOCEPHALIC - Eye Exam Eye Exam: EOMI - ENT Exam ENT Exam: Mucous Membranes Moist - Respiratory Exam Respiratory Exam: NORMAL BREATHING PATTERN - Cardiovascular Exam Cardiovascular Exam: REGULAR RHYTHM - Extremities Exam Extremities exam: Positive for: full ROM. Negative for: calf tenderness - Neurological Exam Neurological exam: Alert, CN II-XII Intact, Oriented x3 - Psychiatric Exam Psychiatric exam: Normal Affect, Normal Mood - Skin Skin Exam: Warm (some drainage from the most inferior aspect of the incision) Results - Vital Signs Recent Vital Signs: Last Vital Signs Temp 98.4 F 06/26/18 08:11 Pulse 88 06/26/18 08:11 Resp 20 06/26/18 08:11 BP 109/63 06/26/18 08:11 Pulse Ox 96 06/26/18 08:11 - Labs Result Diagrams: 06/24/18 15:01 06/25/18 11:50 Labs: Laboratory Results - last 24 hr 06/25/18 11:50 Hepatitis C Antibody Negative Assessment & Plan - Assessment and Plan (Free Text) Assessment: Will increase bowel regimen Pain controlled no evidence of DVT will put dressing over inferior aspect of incision PT.OT to help increase functional independence
[2018-06-27] MEDS: oxyCODONE 5 mg Immediate Release Tab PO PRN ×2 (02:34→19:37)
[2018-06-27] MEDS: Bacitracin OINT 15GM TOP SCH ×3 (09:07→13:00)
[2018-06-27] MEDS: Cholecalciferol 400 Intl Units Tab PO SCH (09:09)
[2018-06-27] MEDS: Bisacodyl 5mg EC Tab PO SCH (09:10)
[2018-06-28] MEDS: oxyCODONE 5 mg Immediate Release Tab PO PRN ×3 (02:40→15:45)
[2018-06-28] MEDS: Bisacodyl 5mg EC Tab PO SCH (09:10)
[2018-06-28] MEDS: Cholecalciferol 400 Intl Units Tab PO SCH (09:11)
[2018-06-28] MEDS: Albuterol HFA 90 mcg/actuation (8 g) IH PRN (15:49)
[2018-06-29] MEDS: oxyCODONE 10 mg Immediate Release Tab PO PRN ×2 (06:01→16:48)
[2018-06-29] MEDS: Bisacodyl 5mg EC Tab PO SCH (09:10)
[2018-06-29] MEDS: Cholecalciferol 400 Intl Units Tab PO SCH (09:11)
--- NOTE | 2018-06-29 16:51 | CP.PCM.PN ---
Subjective - Date & Time of Evaluation Date of Evaluation: 06/29/18 Time of Evaluation: 16:50 - Subjective Subjective: Patient seen ambulating in hallway + pain but getting around well I have started her on Oxycontin 10mg q12 for a few days and hopefully help transition off the short acting as well she has chronic pain issues and she will follow up with provider on discharge no drainage from wound. Objective - Vital Signs/Intake and Output Vital Signs (last 24 hours): Temp Pulse Resp BP Pulse Ox 97.9 F 74 20 116/71 94 L 06/29/18 15:43 06/29/18 16:47 06/29/18 15:43 06/29/18 16:47 06/29/18 15:43 - Medications Medications: Current Medications Acetaminophen (Tylenol 325mg Tab) 650 mg PO Q4 PRN PRN Reason: Pain, Mild (1-3) Last Admin: 06/25/18 13:41 Dose: 650 mg Acetaminophen (Tylenol 325mg Tab) 650 mg PO Q6 PRN PRN Reason: Fever >100.4 F Last Admin: 06/22/18 21:10 Dose: 650 mg Albuterol (Ventolin Hfa 90 Mcg/Actuation (8 G)) 2 puff IH Q6 PRN PRN Reason: Shortness of Breath Last Admin: 06/28/18 15:49 Dose: 2 puff Bisacodyl (Dulcolax) 10 mg PO DAILY [facility] Last Admin: 06/29/18 09:10 Dose: 10 mg Calcium Carbonate (Oscal) 500 mg PO DAILY [facility] Last Admin: 06/29/18 09:10 Dose: 500 mg Cyclobenzaprine HCl (Flexeril) 10 mg PO Q8 PRN PRN Reason: Muscle spasm Last Admin: 06/28/18 22:36 Dose: 10 mg Docusate Sodium (Colace) 100 mg PO DAILY [facility] Last Admin: 06/29/18 09:08 Dose: 100 mg Ferrous Sulfate (Feosol) 325 mg PO BID [facility] Last Admin: 06/29/18 16:47 Dose: 325 mg Folic Acid (Folic Acid) 1 mg PO DAILY [facility] Last Admin: 06/29/18 09:10 Dose: 1 mg Ibuprofen (Motrin Tab) 600 mg PO Q6 PRN PRN Reason: Pain, moderate (4-7) Last Admin: 06/29/18 09:07 Dose: 600 mg Lactulose (Enulose) 20 gm PO Q12 PRN PRN Reason: Constipation Loratadine (Claritin) 10 mg PO DAILY [facility] Last Admin: 06/29/18 09:08 Dose: 10 mg Lorazepam (Ativan) 1 mg PO HS [facility] Last Admin: 06/28/18 21:21 Dose: 1 mg Losartan Potassium (Cozaar) 100 mg PO DAILY [facility] Last Admin: 06/29/18 09:08 Dose: 100 mg Metoprolol Tartrate (Lopressor) 50 mg PO BID [facility] Last Admin: 06/29/18 16:47 Dose: 50 mg Ondansetron HCl (Zofran Inj) 4 mg IVP Q6 PRN PRN Reason: Nausea/Vomiting Oxycodone HCl (Oxycodone Immediate Release Tab) 30 mg PO Q6 PRN PRN Reason: Pain, severe (8-10) Last Admin: 06/29/18 16:48 Dose: 30 mg Pregabalin (Lyrica) 100 mg PO Q8H [facility] Last Admin: 06/29/18 14:46 Dose: 100 mg Vitamin D (Vitamin D 400 Intl Units Tab) 800 intlu PO DAILY [facility] Last Admin: 06/29/18 09:11 Dose: 800 intlu Zinc Acetate/Diphenhydramine (Benadryl 1% Zinc Acetate -0.1%) 1 applic TOP Q12 PRN PRN Reason: Itching / Pruritus Zolpidem Tartrate (Ambien) 5 mg PO HS [facility] Last Admin: 06/28/18 22:08 Dose: 5 mg - Labs Labs: 06/24/18 15:01 06/25/18 11:50 PT 11.4 Seconds (9.8-13.1) 06/25/18 11:50 INR 1.0 06/25/18 11:50
[2018-06-29] MEDS: oxyCODONE 10 mg ER Tab (oxyCONTIN) PO SCH (20:23)
--- NOTE | 2018-06-30 09:58 | CP.PCM.PN ---
Subjective - Date & Time of Evaluation Date of Evaluation: 06/30/18 Time of Evaluation: 10:45 - Subjective Subjective: Patient seen bedside . Concerned about being discharged home .All questions answered . Hemodynamically stable, afebrile No acute issues overnight Participating with PT Plan to d/c home with services on Objective - Vital Signs/Intake and Output Vital Signs (last 24 hours): Temp Pulse Resp BP Pulse Ox 98.6 F 82 20 125/69 97 06/30/18 07:48 06/30/18 07:48 06/30/18 07:48 06/30/18 07:48 06/30/18 07:48 - Medications Medications: Current Medications Acetaminophen (Tylenol 325mg Tab) 650 mg PO Q4 PRN PRN Reason: Pain, Mild (1-3) Last Admin: 06/25/18 13:41 Dose: 650 mg Acetaminophen (Tylenol 325mg Tab) 650 mg PO Q6 PRN PRN Reason: Fever >100.4 F Last Admin: 06/22/18 21:10 Dose: 650 mg Albuterol (Ventolin Hfa 90 Mcg/Actuation (8 G)) 2 puff IH Q6 PRN PRN Reason: Shortness of Breath Last Admin: 06/28/18 15:49 Dose: 2 puff Bisacodyl (Dulcolax) 10 mg PO DAILY [facility] Last Admin: 06/29/18 09:10 Dose: 10 mg Calcium Carbonate (Oscal) 500 mg PO DAILY [facility] Last Admin: 06/29/18 09:10 Dose: 500 mg Cyclobenzaprine HCl (Flexeril) 10 mg PO Q8 PRN PRN Reason: Muscle spasm Last Admin: 06/28/18 22:36 Dose: 10 mg Docusate Sodium (Colace) 100 mg PO DAILY [facility] Last Admin: 06/29/18 09:08 Dose: 100 mg Ferrous Sulfate (Feosol) 325 mg PO BID [facility] Last Admin: 06/29/18 16:47 Dose: 325 mg Folic Acid (Folic Acid) 1 mg PO DAILY [facility] Last Admin: 06/29/18 09:10 Dose: 1 mg Ibuprofen (Motrin Tab) 600 mg PO Q6 PRN PRN Reason: Pain, moderate (4-7) Last Admin: 06/30/18 04:44 Dose: 600 mg Lactulose (Enulose) 20 gm PO Q12 PRN PRN Reason: Constipation Loratadine (Claritin) 10 mg PO DAILY [facility] Last Admin: 06/29/18 09:08 Dose: 10 mg Lorazepam (Ativan) 1 mg PO HS [facility] Last Admin: 06/29/18 21:20 Dose: 1 mg Losartan Potassium (Cozaar) 100 mg PO DAILY [facility] Last Admin: 06/29/18 09:08 Dose: 100 mg Metoprolol Tartrate (Lopressor) 50 mg PO BID [facility] Last Admin: 06/29/18 16:47 Dose: 50 mg Ondansetron HCl (Zofran Inj) 4 mg IVP Q6 PRN PRN Reason: Nausea/Vomiting Oxycodone HCl (Oxycodone Immediate Release Tab) 30 mg PO Q6 PRN PRN Reason: Pain, severe (8-10) Last Admin: 06/29/18 16:48 Dose: 30 mg Oxycodone HCl (Oxycontin Extended Release Tab) 10 mg PO Q12 [facility] Stop: 07/02/18 21:01 Last Admin: 06/29/18 20:23 Dose: 10 mg Pregabalin (Lyrica) 100 mg PO Q8H [facility] Last Admin: 06/30/18 05:00 Dose: 100 mg Vitamin D (Vitamin D 400 Intl Units Tab) 800 intlu PO DAILY [facility] Last Admin: 06/29/18 09:11 Dose: 800 intlu Zinc Acetate/Diphenhydramine (Benadryl 1% Zinc Acetate -0.1%) 1 applic TOP Q12 PRN PRN Reason: Itching / Pruritus Zolpidem Tartrate (Ambien) 5 mg PO [facility] Last Admin: 06/29/18 22:24 Dose: 5 mg - Labs Labs: 06/24/18 15:01 06/25/18 11:50 PT 11.4 Seconds (9.8-13.1) 06/25/18 11:50 INR 1.0 06/25/18 11:50 - Constitutional Appears: Non-toxic, No Acute Distress - Head Exam Head Exam: ATRAUMATIC, NORMAL INSPECTION, NORMOCEPHALIC - Eye Exam Eye Exam: EOMI, Normal appearance, PERRL - ENT Exam ENT Exam: Mucous Membranes Moist, Normal Exam - Neck Exam Neck Exam: Full ROM, Normal Inspection - Respiratory Exam Respiratory Exam: NORMAL BREATHING PATTERN. absent: Accessory Muscle Use, Respiratory Distress - Cardiovascular Exam Cardiovascular Exam: REGULAR RHYTHM. absent: JVD - GI/Abdominal Exam GI & Abdominal Exam: absent: Distended - Rectal Exam Rectal Exam: Deferred - Extremities Exam Extremities Exam: Normal Inspection. absent: Pedal Edema - Neurological Exam Neurological Exam: Alert, Awake, CN II-XII Intact, Oriented x3 - Psychiatric Exam Psychiatric exam: Normal Affect - Skin Skin Exam: Dry, Warm Assessment and Plan - Assessment and Plan (Free Text) Assessment: 62 yo female with history of HTN, OA, COPD and lumbar herniated disc had post erior and anterior lumbar spinal fusion on 06/19/2018. She was transferred to TCU on 06/21/2018 for continuation of therapy and pain management. At present doing better, participating with PT plan for discharge home on with services 1. s/p removal of posterior hardware L4-L5 and dorsal fusion L1-S1 w/ anterior fusion L5-S1( 06/19/18) pain better controlled participating with PT plan to d/c home with outpatient / home PT Continue Flexeril, oxycodone, lyrica 2. Acute blood loss anemia post op Hgb: 9.3, stable s/p 2 unit PRBC transfusion continue FeSO4 3. HTN BP controlled Continue Metoprolol and Losartan 4. COPD asymptomatic Ventolin inhaler 2 puffs q 4hrs prn for SOB/wheezing 5. Elevated LFTs hepatitis panel negative probably drug related LFTs slowly trending down continue monitoring Will repeat LFT-s in AM 6. DVT Prophylaxis SCD no anticoagulation due to high risk of bleeding
[2018-06-30] MEDS: oxyCODONE 10 mg ER Tab (oxyCONTIN) PO SCH ×2 (10:20→22:30)
[2018-06-30] MEDS: Cholecalciferol 400 Intl Units Tab PO SCH (10:22)
[2018-06-30] MEDS: Bisacodyl 5mg EC Tab PO SCH (10:24)
--- NOTE | 2018-06-30 14:16 | CP.PCM.PN ---
Subjective - Date & Time of Evaluation Date of Evaluation: 06/30/18 Time of Evaluation: 14:15 - Subjective Subjective: patient seen in the room she notes pain but she is functioning quite well with just a SC she wanted to go to [facility] but this was denied given her high level of function she is able to perform necessary ADLs and functional mobility she has chronic pain and can follow up with this as an outpatient Set for d/c home 07/02/18 Objective - Vital Signs/Intake and Output Vital Signs (last 24 hours): Temp Pulse Resp BP Pulse Ox 98.6 F 72 20 128/68 97 06/30/18 07:48 06/30/18 10:23 06/30/18 07:48 06/30/18 10:23 06/30/18 07:48 - Medications Medications: Current Medications Acetaminophen (Tylenol 325mg Tab) 650 mg PO Q4 PRN PRN Reason: Pain, Mild (1-3) Last Admin: 06/25/18 13:41 Dose: 650 mg Acetaminophen (Tylenol 325mg Tab) 650 mg PO Q6 PRN PRN Reason: Fever >100.4 F Last Admin: 06/22/18 21:10 Dose: 650 mg Albuterol (Ventolin Hfa 90 Mcg/Actuation (8 G)) 2 puff IH Q6 PRN PRN Reason: Shortness of Breath Last Admin: 06/28/18 15:49 Dose: 2 puff Bisacodyl (Dulcolax) 10 mg PO DAILY [facility] Last Admin: 06/30/18 10:24 Dose: 10 mg Calcium Carbonate (Oscal) 500 mg PO DAILY [facility] Last Admin: 06/30/18 10:23 Dose: 500 mg Cyclobenzaprine HCl (Flexeril) 10 mg PO Q8 PRN PRN Reason: Muscle spasm Last Admin: 06/28/18 22:36 Dose: 10 mg Docusate Sodium (Colace) 100 mg PO DAILY [facility] Last Admin: 06/30/18 10:20 Dose: 100 mg Ferrous Sulfate (Feosol) 325 mg PO BID [facility] Last Admin: 06/30/18 10:24 Dose: 325 mg Folic Acid (Folic Acid) 1 mg PO DAILY [facility] Last Admin: 06/30/18 10:21 Dose: 1 mg Ibuprofen (Motrin Tab) 600 mg PO Q6 PRN PRN Reason: Pain, moderate (4-7) Last Admin: 06/30/18 04:44 Dose: 600 mg Lactulose (Enulose) 20 gm PO Q12 PRN PRN Reason: Constipation Loratadine (Claritin) 10 mg PO DAILY [facility] Last Admin: 06/30/18 10:21 Dose: 10 mg Lorazepam (Ativan) 1 mg PO HS [facility] Last Admin: 06/29/18 21:20 Dose: 1 mg Losartan Potassium (Cozaar) 100 mg PO DAILY [facility] Last Admin: 06/30/18 10:21 Dose: 100 mg Metoprolol Tartrate (Lopressor) 50 mg PO BID [facility] Last Admin: 06/30/18 10:23 Dose: 50 mg Ondansetron HCl (Zofran Inj) 4 mg IVP Q6 PRN PRN Reason: Nausea/Vomiting Oxycodone HCl (Oxycodone Immediate Release Tab) 30 mg PO Q6 PRN PRN Reason: Pain, severe (8-10) Last Admin: 06/29/18 16:48 Dose: 30 mg Oxycodone HCl (Oxycontin Extended Release Tab) 10 mg PO Q12 [facility] Stop: 07/02/18 21:01 Last Admin: 06/30/18 10:20 Dose: 10 mg Pregabalin (Lyrica) 100 mg PO Q8H [facility] Last Admin: 06/30/18 13:37 Dose: 100 mg Vitamin D (Vitamin D 400 Intl Units Tab) 800 intlu PO DAILY [facility] Last Admin: 06/30/18 10:22 Dose: 800 intlu Zinc Acetate/Diphenhydramine (Benadryl 1% Zinc Acetate -0.1%) 1 applic TOP Q12 PRN PRN Reason: Itching / Pruritus Zolpidem Tartrate (Ambien) 5 mg PO HS [facility] Last Admin: 06/29/18 22:24 Dose: 5 mg - Labs Labs: 06/24/18 15:01 06/25/18 11:50 PT 11.4 Seconds (9.8-13.1) 06/25/18 11:50 INR 1.0 06/25/18 11:50
[2018-06-30] MEDS: oxyCODONE 10 mg Immediate Release Tab PO PRN (18:30)
[2018-07-01] MEDS: oxyCODONE 10 mg Immediate Release Tab PO PRN ×2 (01:32→18:06)
[2018-07-01 06:27] LABS: HEMOGLOBIN 9.7 g/dL (12.0-16.0); MEAN CELL VOLUME 92.6 fl (81.0-99.0); MEAN CORPUSCULAR HEMOGLOBIN 30.9 pg (27.0-31.0); MEAN CORPUSCULAR HGB CONC 33.3 g/dL (33.0-37.0); RBC 3.15 Mil/uL (3.80-5.20); RED CELL DISTRIBUTION WIDTH 13.8 % (11.5-14.5); WHITE BLOOD COUNT 10.4 K/uL (4.8-10.8)
[2018-07-01 06:42] LABS: ALBUMIN 3.6 g/dL (3.5-5.0); ALT/SGPT 34 U/L (9-52); AST/SGOT 35 U/L (14-36); BLOOD UREA NITROGEN 9 mg/dl (7-17); CALCIUM 8.6 mg/dL (8.4-10.2); GFR NON-AFRICAN AMERICAN > 60
[2018-07-01] MEDS: Cholecalciferol 400 Intl Units Tab PO SCH (09:55)
[2018-07-01] MEDS: oxyCODONE 10 mg ER Tab (oxyCONTIN) PO SCH ×2 (10:00→21:20)
--- NOTE | 2018-07-01 18:17 | CP.PCM.PN ---
Subjective - Date & Time of Evaluation Date of Evaluation: 07/01/18 Time of Evaluation: 18:16 - Subjective Subjective: Patient seen in the room notes pain was to see Dr Vu today but missed appointment I will send her home with a month she was confused this -am and will d/c Oxycontin Objective - Vital Signs/Intake and Output Vital Signs (last 24 hours): Temp Pulse Resp BP Pulse Ox 97.6 F 67 20 120/67 95 07/01/18 17:23 07/01/18 18:04 07/01/18 17:23 07/01/18 18:04 07/01/18 17:23 - Medications Medications: Current Medications Acetaminophen (Tylenol 325mg Tab) 650 mg PO Q4 PRN PRN Reason: Pain, Mild (1-3) Last Admin: 06/25/18 13:41 Dose: 650 mg Acetaminophen (Tylenol 325mg Tab) 650 mg PO Q6 PRN PRN Reason: Fever >100.4 F Last Admin: 06/22/18 21:10 Dose: 650 mg Albuterol (Ventolin Hfa 90 Mcg/Actuation (8 G)) 2 puff IH Q6 PRN PRN Reason: Shortness of Breath Last Admin: 06/28/18 15:49 Dose: 2 puff Calcium Carbonate (Oscal) 500 mg PO DAILY [facility] Last Admin: 07/01/18 09:55 Dose: 500 mg Cyclobenzaprine HCl (Flexeril) 10 mg PO Q8 PRN PRN Reason: Muscle spasm Last Admin: 07/01/18 06:39 Dose: 10 mg Ferrous Sulfate (Feosol) 325 mg PO BID [facility] Last Admin: 07/01/18 18:04 Dose: 325 mg Folic Acid (Folic Acid) 1 mg PO DAILY [facility] Last Admin: 07/01/18 09:54 Dose: 1 mg Ibuprofen (Motrin Tab) 600 mg PO Q6 PRN PRN Reason: Pain, moderate (4-7) Last Admin: 07/01/18 13:06 Dose: 600 mg Loratadine (Claritin) 10 mg PO DAILY [facility] Last Admin: 07/01/18 09:53 Dose: 10 mg Lorazepam (Ativan) 1 mg PO HS [facility] Last Admin: 06/30/18 22:32 Dose: 1 mg Losartan Potassium (Cozaar) 100 mg PO DAILY [facility] Last Admin: 07/01/18 09:54 Dose: 100 mg Metoprolol Tartrate (Lopressor) 50 mg PO BID [facility] Last Admin: 07/01/18 18:04 Dose: 50 mg Ondansetron HCl (Zofran Inj) 4 mg IVP Q6 PRN PRN Reason: Nausea/Vomiting Oxycodone HCl (Oxycodone Immediate Release Tab) 30 mg PO Q6 PRN PRN Reason: Pain, severe (8-10) Last Admin: 07/01/18 18:06 Dose: 30 mg Oxycodone HCl (Oxycontin Extended Release Tab) 10 mg PO Q12 [facility] Stop: 07/02/18 21:01 Last Admin: 07/01/18 10:00 Dose: Not Given Pregabalin (Lyrica) 100 mg PO Q8@0000,0800,1600 [facility] Last Admin: 07/01/18 15:23 Dose: 100 mg Vitamin D (Vitamin D 400 Intl Units Tab) 800 intlu PO DAILY [facility] Last Admin: 07/01/18 09:55 Dose: 800 intlu Zinc Acetate/Diphenhydramine (Benadryl 1% Zinc Acetate -0.1%) 1 applic TOP Q12 PRN PRN Reason: Itching / Pruritus Zolpidem Tartrate (Ambien) 5 mg PO HS [facility] Last Admin: 07/01/18 01:32 Dose: 5 mg - Labs Labs: 07/01/18 05:25 07/01/18 05:25 PT 11.4 Seconds (9.8-13.1) 06/25/18 11:50 INR 1.0 06/25/18 11:50
[2018-07-01 21:22] VITALS: TEMP 98.3
[2018-07-02] MEDS: oxyCODONE 10 mg Immediate Release Tab PO PRN ×2 (03:00→11:24)
[2018-07-02 08:16] VITALS: BP 123/68; PULSE 82; O2SAT 98
[2018-07-02] MEDS: oxyCODONE 10 mg ER Tab (oxyCONTIN) PO SCH (09:34)
[2018-07-02] MEDS: Cholecalciferol 400 Intl Units Tab PO SCH (09:34)
== END 2018-07-02 14:15 | disposition home health service (06) | DRG 560 ==
LOC: H.TCU 16:45 → MERGE 16:45
PROC: F07Z9FZ Gait Training/Functional Ambulation Treatment using Assistive, Adaptive, Supportive or Protective Equipment (ICD-10-PCS; principal; 2018-06-20)
PROC: F07K6GZ Therapeutic Exercise Treatment of Musculoskeletal System - Upper Back / Upper Extremity using Aerobic Endurance and Conditioning Equipment (ICD-10-PCS; 2018-06-20)
PROC: F08Z0FZ Bathing/Showering Techniques Treatment using Assistive, Adaptive, Supportive or Protective Equipment (ICD-10-PCS; 2018-06-20)
PROC: F08Z1FZ Dressing Techniques Treatment using Assistive, Adaptive, Supportive or Protective Equipment (ICD-10-PCS; 2018-06-20)
PROC: F07L6GZ Therapeutic Exercise Treatment of Musculoskeletal System - Lower Back / Lower Extremity using Aerobic Endurance and Conditioning Equipment (ICD-10-PCS; 2018-06-20)
DX: Z47.89 Encounter for other orthopedic aftercare (principal); D62 Acute posthemorrhagic anemia; E78.5 Hyperlipidemia, unspecified; I10 Essential (primary) hypertension; J44.9 Chronic obstructive pulmonary disease, unspecified; Z87.891 Personal history of nicotine dependence; K59.00 Constipation, unspecified; G89.29 Other chronic pain; Z88.1 Allergy status to other antibiotic agents; Z91.040 Latex allergy status; R79.89 Other specified abnormal findings of blood chemistry; R53.1 Weakness; R41.0 Disorientation, unspecified